=== PATIENT | female | born 1980 | race Two or more races ===

== ENCOUNTER 2018-10-28 14:30 | Inpatient (IN) | payer OTHER ==
[~2018-10-28] VITALS: Ht 61 cm; Wt 73.0 kg
[2018-11-09] MEDS ORDERED: PRENATAL TABLE1 EAC1 PO (12:52)
== END 2018-11-11 12:49 | disposition home or self-care (01) | DRG 807 ==
LOC: O/R 14:30 → OB/GYN 11-09 11:50 → LDR 11-09 11:50 → OB/GYN 11-09 16:31 → LDR 11-15 14:30
PROVIDERS: ADMIT Specialist
PROC: 10E0XZZ Delivery of Products of Conception, External Approach (ICD-10-PCS; principal; 2018-11-09)
PROC: 0HQ9XZZ Repair Perineum Skin, External Approach (ICD-10-PCS; 2018-11-09)
PROC: 4A033R1 Measurement of Arterial Saturation, Peripheral, Percutaneous Approach (ICD-10-PCS; 2018-11-09)
PROC: 4A1HXCZ Monitoring of Products of Conception, Cardiac Rate, External Approach (ICD-10-PCS; 2018-11-09)
DX: O70.0 First degree perineal laceration during delivery (principal); Z37.0 Single live birth; Z3A.39 39 weeks gestation of pregnancy

== ENCOUNTER 2021-09-05 05:51 | Day surgery (SDC) | payer OTHER ==
[~2021-09-05] VITALS: Ht 157.5 cm; Wt 59.9 kg
[~2021-09-05 05:51] MED LIST: ADIPEX-P37.5 MG PO; PRENATAL TABLE1 EAC1 PO
== END 2021-09-05 11:30 | disposition home or self-care (01) ==
LOC: CIR.AMB 05:51
PROVIDERS: ATTEND Orthopaedic Surgery
DX: M75.121 Complete rotator cuff tear or rupture of right shoulder, not specified as traumatic (principal); M75.21 Bicipital tendinitis, right shoulder; M75.111 Incomplete rotator cuff tear or rupture of right shoulder, not specified as traumatic; Z20.822 Contact with and (suspected) exposure to COVID-19; J45.909 Unspecified asthma, uncomplicated; Z86.16 Personal history of COVID-19